=== PATIENT | female | born 1990 | race African-American/Black ===

== ENCOUNTER 2020-01-04 16:08 | Emergency (ER) | payer OTHER ==
[~2020-01-04] VITALS: Ht 157.5 cm; Wt 85.7 kg
[2020-01-04] MEDS ORDERED: VALIUM10 MG PO (16:13)
[2020-01-04] MEDS ORDERED: ZOLOFT50 M1 PO (16:13)
[2020-01-04] MEDS ORDERED: TRAZODONE HCL50 MG PO (16:13)
[2020-01-04 16:44] LABS: HEMATOCRIT 33.6 % (37.0-47.0); HEMOGLOBIN 10.6 gm/dL (12.0-15.0); MCH 23.7 pg (26.0-34.0); MCHC 31.4 g/dL (28.0-37.0); MCV 75.5 fL (80.0-100.0); RBC 4.45 mil/uL (4.20-5.00)
[2020-01-04 16:53] LABS: ANION GAP 14 mmol/L (7-16); BUN 11 mg/dL (7-18); CALCIUM 8.7 mg/dL (8.5-10.1); CHLORIDE 101 mmol/L (98-107); CO2 21 mmol/L (21-32); CREATININE 0.7 mg/dL (0.6-1.0); GLUCOSE 102 mg/dL (74-106); POTASSIUM 3.4 mmol/L (3.5-5.1); SODIUM 136 mmol/L (136-145)
[2020-01-04 17:03] LABS: TROPONIN-I <0.06 ng/mL (<0.06)
[2020-01-04 18:08] VITALS: BP 122/74
--- NOTE | 2020-01-05 08:24 | EKG ---
[facility] [place] [address] ELECTROCARDIOGRAM REPORT Name: JOHANN SALGUERO Room #: [facility].R.#: [id number] Admission: 01/04/20 Attend Phys: Discharge: 01/04/20 Date of : 89 Report #: [id number] THIS REPORT FOR: cc: FAM - No family physician/PCP FAM - No family physician/PCP Andre Briones MD [facility] THIS REPORT FOR: //name// [facility] ED Test Date: 2020-01-04 Test Time: 16:29:31 Pat Name: JOHANN SALGUERO Department: Room: Gender: Transportation Job Titles: maximo : 1990 Requested By: Anna Phillips Order Number: [id number] MD: Andre Briones Measurements Intervals D Lo Rate: 71 P: 47 LA: 115 QRS: 40 QRSD: 90 T: 17 QT: 430 QTc: 468 Interpretive Statements Sinus rhythm Borderline short LA interval No previous ECG available for comparison Electronically Signed On 01-05-2020 8:24:19 CDT by Andre Briones [email or web address] <ELECTRONICALLY SIGNED> By: Andre Briones MD, [facility] 01/05/20 0824 1629 1629 Andre Briones MD, [facility] /EPI
== END 2020-01-04 18:08 ==
LOC: ER 16:08
PROVIDERS: Physician Assistant
DX: F41.9 Anxiety disorder, unspecified (principal); F17.210 Nicotine dependence, cigarettes, uncomplicated